=== PATIENT | female | born 2000 | race Caucasian/White ===

== ENCOUNTER 2022-02-12 21:25 | Emergency (ER) | payer OTHER ==
[~2022-02-12] VITALS: Ht 165.1 cm; Wt 115.7 kg
[2022-02-12 21:27] VITALS: BP 145/88
[2022-02-12] MEDS ORDERED: BENZ-39 PO (22:31)
== END 2022-02-12 22:46 | disposition home or self-care (01) ==
LOC: EDH 21:25
DX: J04.0 Acute laryngitis (principal); B34.9 Viral infection, unspecified; Z20.822 Contact with and (suspected) exposure to COVID-19; Z88.0 Allergy status to penicillin
CPT/HCPCS: 99283; 87635; 87880; 87804 ×2; C9803